=== PATIENT | male | born 1995 | race Caucasian/White ===

== ENCOUNTER 2017-08-27 16:34 | Emergency (ER) | payer OTHER ==
[~2017-08-27] VITALS: Ht 193 cm; Wt 102.2 kg
[~2017-08-27 16:34] MED LIST: MOBIC7.5 MG PO; NOHOMEMEDS; TESSALON PERLE100 MG PO
[2017-08-27] MEDS ORDERED: SKELAXIN800 MG PO (21:18)
[2017-08-27] MEDS ORDERED: NORCO 5/3251 TABLET PO (21:18)
[2017-08-27] MEDS ORDERED: MOTRIN600 MG PO (21:18)
[2017-08-27 21:24] VITALS: BP 161/86
== END 2017-08-27 21:25 | disposition home or self-care (01) ==
LOC: EME 16:34
DX: S16.1XXA Strain of muscle, fascia and tendon at neck level, initial encounter (principal); V43.52XA Car driver injured in collision with other type car in traffic accident, initial encounter; Y92.411 Interstate highway as the place of occurrence of the external cause
CPT/HCPCS: 72050; 99281; 99284